=== PATIENT | female | born 1990 | race Caucasian/White ===

== ENCOUNTER → 2021-03-03 09:20 | Outpatient (CLI) | payer OTHER, SELFPAY | PROVIDERS: PCP Family Medicine; Visit Provider Nurse Practitioner | DX: Z20.822 Contact with and (suspected) exposure to COVID-19 (principal) | CPT/HCPCS: C9803; U0003; U0005 ==

== ENCOUNTER → 2021-03-14 13:31 | Outpatient (CLI) | payer OTHER, SELFPAY | PROVIDERS: PCP Family Medicine; Visit Provider Nurse Practitioner | DX: U07.1 COVID-19 (principal) | CPT/HCPCS: C9803; U0003; U0005 ==

== ENCOUNTER → 2024-01-11 09:48 | Day surgery (SDC) | payer BC, SELFPAY ==
[2024-01-11 10:26] VITALS: BMI 27.1
--- NOTE | 2024-01-11 11:10 | EXP.TILT ---
Findings:: PROCEDURE: Tilt Table Test REQUESTING PROVIDER: Arielle Turcios MD INDICATION: Recurrent lightheadedness, near syncope, dizziness BETA BLOCKERS: None PRETEST VITAL SIGNS (supine position after 5 minutes): BP 120/70, HR 69 bpm and sinus rhythm, O2 Sats 100% PROCEDURE SUMMARY: Patient was prepped per protocol, IV started, connected to heart, blood pressure and oxygen saturation monitors, and safety straps applied. Patient was then tilted at 70 degrees for a total of 7 minutes. The test was terminated early due to a symptomatic drop in blood pressure and heart rate. The patient started feeling nauseated and dizzy within 3 minutes of being raised upright. However, these symptoms were not associated with a significant change in BP or HR with the first BP after being placed upright being 124/76 (HR 73 bpm) and two minutes later the BP was 116/77 (HR 84 bpm). After 6 minutes in the upright position her BP was 109/64 (HR 88 bpm). After 7 minutes upright her symptoms got significantly worse with complaints of feeling hot, lightheaded, weak, nauseated and near syncopal. These symptoms were associated with a drop in BP to 97/44 as well as a slowing of HR to 69 bpm. At this time she was returned to the supine position. After being supine for 3 minutes, she felt better with a corresponding BP of 116/77 and HR of 69 bpm. She remained in a normal sinus rhythm throughout the test. Oxygen saturation was consistently at 100%. CONCLUSIONS: Based on the patient's symptoms and drop in both blood pressure and heart rate, the findings seem most consistent with a vasovagal (neurocardiogenic) response. Differential diagnosis would include delayed orthostatic hypotension.
== END ==
PROVIDERS: PCP Family Medicine; Visit Provider Internal Medicine
DX: R55 Syncope and collapse (principal); R42 Dizziness and giddiness
CPT/HCPCS: 93660

== ENCOUNTER 2025-03-30 07:17 | Outpatient (CLI) | payer BC, SELFPAY ==
--- OUTSIDE RECORDS SUMMARY | 2025-03-30 07:25 | XMS_ITS | Clinical Summary ---
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 08/07/2022 Active triamterene-hyd rochlorothiazid e (DYAZIDE) 37.5-25 MG per capsule Take 1 capsule by mouth Daily. 11/22/2022 Active Active Problems Problem Noted Date Diagnosed Date HTN (hypertension) 01/23/2023 Assessment & Plan (02/07/2023 3:31 PM EST): Hypertension is stable . Continue current treatment regimen. Regular aerobic exercise. Blood pressure will be reassessed at the next regular appointment. -Continue Dyazide at current dose. - Continue monitoring blood pressure at home. Assessment & Plan (01/23/2023 11:04 AM EDT): Hypertension is stable . Continue current treatment regimen. Regular aerobic exercise. Blood pressure will be reassessed at the next regular appointment. -Continue Dyazide at current dose. - Continue monitoring blood pressure at home. Dizziness 01/23/2023 Assessment & Plan (02/07/2023 3:31 PM EST): Patient reports episodes of dizziness x2 years and a syncopal episode in July 2022. Most likely related to vertigo/possible M ni re's disease. Echocardiogram today revealed an LVEF of 70%. Left ventricular diastolic function was normal, RVSP was normal and no significant valvular regurgitation or stenosis. Holter monitor from 02/06/2023 revealed a primary rhythm of sinus rhythm with average heart rate of 80 bpm. No significant arrhythmias noted. Only 1 SVT episode that lasted 3 beats. Follow up with ENT regarding dizziness Assessment & Plan (01/23/2023 11:09 AM EDT): Patient reports episodes of dizziness x2 years and a syncopal episode in July 2022. Most likely related to vertigo/possible M ni re's disease but cannot confirm until cardiac etiology is ruled out. - Holter monitor and echocardiogram for further evaluation. - We will consider a stress echo after she completes Holter and echo. Immunizations Immunization Administration Dates Next Due COVID-19 (MODERNA) 1st,2nd,3rd Dose Monovalent 0 07/30/2020,06/29/2020 Fluzone (or Fluarix & Flulaval for VFC) >6mos Family History Medical History Relation Name Comments COPD Father Cancer Father High cholesterol Father Hypertension Father Arthritis Mother Diabetes Mother High cholesterol Mother Hypertension Mother Relation Name Status Comments Father Alive Mother Alive Social History Tobacco Use Types Packs/Day Years Used Date Smoking Tobacco: Never Passive Smoke Exposure: Current Smokeless Tobacco: Never Tobacco Cessation:Counseling Given: Not Answered Alcohol Use Standard Drinks/Week Comments Yes 0 (1 standard drink = 0.6 oz pur e alcohol) OCCASIONALLY Abuse Screen Answer Date Recorded Unsafe at Home or Work/School Not on file Feels Threatened by Someone? Not on file 03/2023 Does Anyone Keep You from Co ntacting Others or Doint Things Outside the Home? Not on file 01/11/2023 Physical Sign of Abuse Present Not on file 1 Housing Stability Answer Date Recorded Current Living Arrangements Not on file 12/31 Potentially Unsafe Housing Conditions Not on bhupinder e 01/11/2023 Family and Community Support Answer Geoffrey e Recorded Help with Day-to-Day Activities Not on file 01/11/2023 Lonely or Isolated Not on file 01/11/2023 Employment Answer Date Recorded Do you want help finding or keeping work or a varsha b? Not on file 01/11/2023 Disabilities Answer Date Recorded Concentrating, Remembering, or Making Decisions Difficulty Not on file 01/11/2023 Doing Errands Independently Difficulty Not on fi le 01/11/2023 Education Answer Date Recorded Help with school or training? Not on file Preferred Language Not on file 01/11/2023 Comments Unknown Sex and Gender Information Value Date Recorded Sex Assigned at Not on file Legal Sex Female 9:28 AM EDT Gender Identity Not on file Sexual Orientation Not on file Last Filed Vital Signs Vital Sign Reading Time Taken Comments Blood Pressure 134/90 02/07/2023 3:05 PM EST Pulse 86 02/07/2023 3:05 PM EST Temperature - - Respiratory Rate - - Oxygen Saturation 93% 02/07/2023 3:05 PM EST Inhaled Oxygen Concentration - - Weight 61.7 kg (136 lb) 02/07/2023 3:05 PM EST Height 152.4 cm (5') 02/07/2023 3:05 PM EST Body Mass Index 26.56 02/07/2023 3:05 PM EST Plan of Treatment Health Maintenance Due Date Last Done Comments Annual Gynecologic Pelvic an d Breast Exam 1988 TDAP/TD VACCINES (1 - Tdap) 2007 ANNUAL PHYSICAL 01/23/2023 HEPATITIS C SCREENING 01/23/2023 INFLUENZA VACCINE 10/31/2024 04/21/2017 Pneumococcal Vaccine 0-49 Aged Out No longer eligible based on patient's age to complete this topic Insurance PPO Care Teams Electric Refrigerator Preparer Relationship Specialty Start Date End Date Ricardo Wharton MD [address] [place] [address] PCP - General Family Medicine 01/11/23
--- NOTE | 2025-03-30 07:30 | US_ITS ---
PROCEDURE: US TRANSVAGINAL CLINICAL INDICATION: abnormal bleeding COMPARISON: No exams were available for comparison FINDINGS: Transvaginal sonographic images of the pelvis were obtained. UTERUS: 8.1cm x 5.7 cmx 4.7 cm retroverted with a combined endometrial thickness of 8.4mm. LEFT OVARY: 2.3cmx1.7 cmx0.8cm with a volume of 1.6ml. RIGHT OVARY: 3.7cmx 2.4cmx1.6cm with a volume of 7.4ml. Both ovaries are seen and appear normal. Doppler flow to both ovaries are seen. There is a small amount of fluid in the cul-de-sac. IMPRESSION: 1. Retroverted uterus normal in shape and size. 2. The endometrium is normal and measures 8.4 mm. 3. Both ovaries are seen and appear normal. 4. There is a small amount of fluid in the cul-de-sac. Dictated by: Ej Salinas MD 03/30/2025 10:50 Ej Salinas MD in OV 03/30/2025 10:50
== END 2025-03-30 23:59 | disposition home or self-care (01) ==
PROVIDERS: PCP Family Medicine; Visit Provider Obstetrics & Gynecology
DX: N85.4 Malposition of uterus (principal); N92.6 Irregular menstruation, unspecified; R93.89 Abnormal findings on diagnostic imaging of other specified body structures
CPT/HCPCS: 76830